=== PATIENT | male | born 1960 | race Hispanic/Latino ===

== ENCOUNTER 2023-02-19 12:25 | Emergency (ER) | payer MEDICARE ==
[~2023-02-19] VITALS: Ht 165.1 cm; Wt 68.0 kg
[2023-02-19] MEDS ORDERED: 0.9%NACL 1000ML 1,000 ML IV ONE (16:30)
[2023-02-19 17:52] VITALS: BP 169/90; PULSE 70; RESP 18; O2SAT 95
[2023-02-19 21:39] LABS: BASOPHILS # (AUTO) 0.04 K/uL (0.00-0.20); BASOPHILS % (AUTO) 0.6 % (0.0-5.0); EOSINOPHILS # (AUTO) 0.22 K/uL (0.00-0.70); EOSINOPHILS % (AUTO) 3.1 % (0.0-8.0); HEMATOCRIT 31.4 % (42-54); IMMATURE GRANULOCYTE ABSOLUTE 0.03 K/uL (0-1); MEAN CORPUSCULAR HEMOGLOBIN 32.5 pg (27.0-33.0); MEAN CORPUSCULAR HGB CONC 33.4 g/dL (32.0-36.0); MEAN CORPUSCULAR VOLUME 97.2 fL (79-99); MONOCYTES # (AUTO) 0.9 K/uL (0.1-1.0); NEUTROPHILS % (AUTO) 69.9 % (40.0-77.0); PLATELET COUNT (AUTO) 241 K/uL (130-400); RED BLOOD CELL COUNT(AUTO) 3.23 MIL/uL (4.50-6.20); RED CELL DISTRIBUTION WIDTH 13.4 % (11.0-15.5); WHITE BLOOD COUNT (AUTO) 7.2 K/uL (4.8-10.8)
[2023-02-20 02:40] LABS: B-TYPE NATRIURETIC PEPTIDE 102 pg/mL (0-100)
== END 2023-02-19 18:00 | disposition home or self-care (01) ==
LOC: EDH 12:25
DX: E86.0 Dehydration (principal); R55 Syncope and collapse; Z88.8 Allergy status to other drugs, medicaments and biological substances
CPT/HCPCS: 99285; 96360; 71045; 83880; 85025; 85730; 36415; 93005; J7030

== ENCOUNTER 2023-07-27 13:16 | Observation (INO) | payer MEDICARE ==
[~2023-07-27] VITALS: Ht 177.8 cm; Wt 66.2 kg
[2023-07-27 14:46] VITALS: BP 111/75; PULSE 77; RESP 18
[2023-07-27] MEDS ORDERED: PHARMACY COMMUNICATION MISC SCH ×2 (15:00→15:30)
[2023-07-27 15:35] LABS: BASOPHILS # (AUTO) 0.03 K/uL (0.00-0.20); BASOPHILS % (AUTO) 0.6 % (0.0-5.0); EOSINOPHILS # (AUTO) 0.24 K/uL (0.00-0.70); EOSINOPHILS % (AUTO) 5.1 % (0.0-8.0); HEMATOCRIT 37.6 % (42-54); IMMATURE GRANULOCYTE ABSOLUTE 0.01 K/uL (0-1); LYMPHOCYTES # (AUTO) 1.3 K/uL (1.0-4.8); LYMPHOCYTES % (AUTO) 28.2 % (21.0-51.0); MEAN CORPUSCULAR HGB CONC 34.6 g/dL (32.0-36.0); MEAN CORPUSCULAR VOLUME 92.6 fL (79-99); MONOCYTES # (AUTO) 0.4 K/uL (0.1-1.0); MONOCYTES % (AUTO) 8.9 % (3.0-13.0); NEUTROPHILS # (AUTO) 2.7 K/uL (1.8-7.7); PLATELET COUNT (AUTO) 311 K/uL (130-400); RED BLOOD CELL COUNT(AUTO) 4.06 MIL/uL (4.50-6.20); WHITE BLOOD COUNT (AUTO) 4.7 K/uL (4.8-10.8)
[2023-07-27 15:48] LABS: ALBUMIN 3.9 g/dL (3.5-5.0); BILIRUBIN,TOTAL 0.8 mg/dL (0.2-1.0); CREATININE 0.6 mg/dL (0.5-1.3); POTASSIUM 4.9 mmol/L (3.5-5.1); TOTAL PROTEIN, SERUM 7.6 g/dL (6.0-8.3)
[2023-07-27] MEDS: LACTULOSE 20 GM/30 ML UDCUP PO SCH (16:39)
[2023-07-27] MEDS: PEG 3350/NA SULF,BICARB,CL/KCL 4000 ML SOLN PO ONE (16:41)
[2023-07-27] MEDS: BISACODYL 5 MG TABLET.DR PO ONE ×2 (16:41→19:53)
[2023-07-27 17:52] VITALS: O2SAT 97
[2023-07-27] MEDS: D5W-1/2 NS/20MEQ KCL 1,000 ML IV SCH (18:07)
[2023-07-27 19:00] VITALS: BP 169/89; PULSE 70; RESP 20
[2023-07-27] MEDS: CARBIDOPA-LEVODOPA 25-100 TAB PO SCH (19:53)
[2023-07-27] MEDS: CARBIDOPA/LEVODOPA ER 50-200 1 EACH TABLET.ER PO SCH (19:54)
[2023-07-27] MEDS: PREGABALIN 25 MG CAP PO SCH (19:54)
[2023-07-27 21:00] VITALS: O2SAT 97
[2023-07-27 21:16] VITALS: BP 125/83; PULSE 73
[2023-07-27] MEDS ORDERED: KETOROLAC 30MG VIAL (30MG/ML) IVP PRN (22:30)
[2023-07-27] MEDS: MORPHINE 2 MG SYG IVP PRN (22:56)
[2023-07-28] VITALS: BP 126/72; PULSE 64; RESP 20
[2023-07-28 04:00] VITALS: BP 148/93; PULSE 67; RESP 20
[2023-07-28] MEDS: CARBIDOPA-LEVODOPA 25-100 TAB PO PRN (06:11)
[2023-07-28] MEDS ORDERED: CARBIDOPA-LEVODOPA 25-100 TAB PO SCH (07:00)
[2023-07-28 08:00] VITALS: BP 146/102; PULSE 75; RESP 15
[2023-07-28] MEDS: CARBIDOPA/LEVODOPA ER 50-200 1 EACH TABLET.ER PO SCH (09:00)
[2023-07-28] MEDS ORDERED: PHARMACY COMMUNICATION MISC SCH (09:00)
[2023-07-28] MEDS: TAMSULOSIN HCL 0.4 MG CAP.ER.24H PO SCH (09:00)
[2023-07-28 11:46] VITALS: BP 159/94; PULSE 67; RESP 15
[2023-07-28] MEDS ORDERED: KCL 20 MEQ ERTAB PO PRN (15:00)
[2023-07-28] MEDS ORDERED: MAGNESIUM 2GM PREMIX 50ML 50 ML IV PRN (15:00)
[2023-07-28] MEDS ORDERED: POTASSIUM CHLORIDE 10% ELIXIR 20 MEQ/15 ML UDCUP PO PRN (15:00)
[2023-07-28] MEDS ORDERED: POTASSIUM CHLORIDE 20MEQ/100ML 100 ML IV PRN ×2 (15:00)
[2023-07-28 15:22] VITALS: O2SAT 100
[2023-07-29] MEDS ORDERED: CARBIDOPA/LEVODOPA ER 50-200 1 EACH TABLET.ER PO SCH (07:00)
[2023-07-29] MEDS ORDERED: CARBIDOPA-LEVODOPA 25-100 TAB PO SCH (07:00)
== END 2023-07-28 15:10 | disposition left against medical advice (07) ==
LOC: EDH 13:16 → 4AH 13:17
PROVIDERS: ADMIT Internal Medicine Infectious Disease; ATTEND Internal Medicine Infectious Disease
DX: E87.1 Hypo-osmolality and hyponatremia (principal); R13.10 Dysphagia, unspecified; E86.0 Dehydration; G20.A1 Parkinson's disease without dyskinesia, without mention of fluctuations; I10 Essential (primary) hypertension; N40.0 Benign prostatic hyperplasia without lower urinary tract symptoms; F41.8 Other specified anxiety disorders; Z53.29 Procedure and treatment not carried out because of patient's decision for other reasons; Z12.11 Encounter for screening for malignant neoplasm of colon
CPT/HCPCS: 96374; 96361; 83735; 80053; 85025; 82948 ×4; 36415; 74018; 93005 ×2; 96376; G0378 ×26; G0379; J2270 ×2; J3480